=== PATIENT | male | born 1990 | race Caucasian/White ===

== ENCOUNTER 2020-07-26 21:09 | Emergency (ER) | payer BC, OTHER ==
[~2020-07-26] VITALS: Ht 190.5 cm; Wt 99.0 kg
[2020-07-26 21:10] VITALS: BP 129/80
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
== END 2020-07-26 21:46 | disposition home or self-care (01) ==
LOC: EDUNIT# 21:09 → ER FS 21:13
DX: S60.222A Contusion of left hand, initial encounter (principal); S80.811A Abrasion, right lower leg, initial encounter; V86.95XA Unspecified occupant of 3- or 4- wheeled all-terrain vehicle (ATV) injured in nontraffic accident, initial encounter
CPT/HCPCS: 73130; 73610

== ENCOUNTER 2023-02-08 22:33 | Emergency (ER) | payer OTHER, BC ==
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
[2023-02-08 23:25] VITALS: BP 181/103
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
== END 2023-02-08 23:25 | disposition home or self-care (01) ==
LOC: EDUNIT# 22:33 → ER FS 22:34
DX: S60.211A Contusion of right wrist, initial encounter (principal); S00.81XA Abrasion of other part of head, initial encounter; S40.812A Abrasion of left upper arm, initial encounter; S40.811A Abrasion of right upper arm, initial encounter; M25.512 Pain in left shoulder; M79.662 Pain in left lower leg; Z28.310 Unvaccinated for COVID-19; V28.49XA Other motorcycle driver injured in noncollision transport accident in traffic accident, initial encounter; Y93.55 Activity, bike riding; Y92.410 Unspecified street and highway as the place of occurrence of the external cause
CPT/HCPCS: 73030; 73110